=== PATIENT | male | born 1960 | race Caucasian/White ===

== ENCOUNTER 2023-01-22 11:30 | Outpatient (RCR) | payer OTHER, SELFPAY | END 2023-01-22 12:06 | disposition home or self-care (01) | PROVIDERS: PCP Surgery; Visit Provider Family Medicine | DX: M54.16 Radiculopathy, lumbar region (principal); Z51.89 Encounter for other specified aftercare | CPT/HCPCS: 97110; 97140; 97162 ==

== ENCOUNTER 2023-03-05 06:01 | Day surgery (SDC) | payer OTHER, SELFPAY ==
[2023-03-05] MEDS: LACTATED RINGERS 1000 ML 1,000 ML 100 ML IV (05:50)
[2023-03-05 06:18] VITALS: BP 150/92; PULSE 95; RESP 16; TEMP 36.6; O2SAT 95; BMI 27.1
[2023-03-05] MEDS: SODIUM CHLORIDE 0.9 % (FLUSH) 10 ML SYRINGE IVF (06:28)
--- NOTE | 2023-03-05 06:48 | W.ANESCHARGE ---
Anesthesia Charges Start Date/Time Anesthesia Start Date: 03/05/23 Anesthesia Start Time: 07:13 Stop Date/Time Anesthesia Stop Date: 03/05/23 Anesthesia Stop Time: 08:39
--- NOTE | 2023-03-05 07:15 | CRLHL7_ITS ---
For Patients: As a result of the Cures Act, medical imaging exams and procedure reports are released immediately into your electronic medical record. You may view this report before your referring provider. If you have questions, please contact your health care provider. Indication: Right bunionectomy Technique: Two fluoroscopic images of the right forefoot. Fluoroscopic time 14 seconds. IMPRESSION: Fluoroscopic guidance for right bunionectomy/1st metatarsal osteotomy. Dictated by Teto Toro MD @ 03/05/2023 9:27:17 AM (Electronically Signed)
[2023-03-05] MEDS: BUPIVACAINE 0.5% 30 ML INJECTION (07:20)
--- NOTE | 2023-03-05 07:40 | W.ANESCHARGE ---
Anesthesia Charges Start Date/Time Anesthesia Start Date: 03/05/23 Anesthesia Start Time: 07:13 Stop Date/Time Anesthesia Stop Date: 03/05/23 Anesthesia Stop Time: 08:39
[2023-03-05 08:35] VITALS: BP 105/77; PULSE 74; RESP 16; TEMP 36.2; O2SAT 96
--- NOTE | 2023-03-05 08:40 | W.ANESCHARGE ---
Anesthesia Charges Start Date/Time Anesthesia Start Date: 03/05/23 Anesthesia Start Time: 07:13 Stop Date/Time Anesthesia Stop Date: 03/05/23 Anesthesia Stop Time: 08:39
--- NOTE | 2023-03-05 08:43 | PM.PROC ---
Procedure Note Date Seen: 03/05/23 Date of procedure: 03/05/23 Will [facility] bill your pro fee for this procedure?: No Procedure Description: Preoperative diagnosis: Hallux valgus with bunion right Postoperative diagnosis: Hallux valgus with bunion right Procedure: Bunionectomy by distal metatarsal osteotomy right Anesthesia: Mac with local Hemostasis: Ankle tourniquet 250 mm Hg Estimated blood loss: Less than 10 mL Materials: [place] 3.0 cannulated Fixos screws x2 Complications: None apparent Indication for surgery: Patient seen in clinic for ongoing bunion pain. His lactate for surgical reconstruction. I reviewed the procedure, recovery, expectations and potential complications. These include but not limited to: Poor wound healing, infection, under correction, over correction, painful hardware, nerve injury, nonunion, delayed union, malunion, need for future surgery, deep venous thrombosis, pulmonary embolism possible . Site marked. All questions answered. Written consent obtained. Procedure: Patient brought up room placed supine position on the operating table. IV sedation was initiated local anesthetic injected into the right foot. He was prepped and draped in a sterile fashion. Standard time-out protocol was followed. Right foot was exsanguinated the tourniquet inflated. The right great toenail was significantly loose and was easily removed with a hemostat. Dorsomedial curvilinear incision is made over the 1st metatarsophalangeal joint. Incision was carried down through skin subcutaneous tissue. The tissue capsular incision was then created. Blunt dissection was carried down in the 1st intermetatarsal space a standard lateral release was performed. The plantar lateral joint capsule was released as well as the dorsal fibular sesamoidal ligaments and the adductor tendon. An osteotomy guide pin was placed in the 1st metatarsal head and checked under C-arm. A modified Katiuska Green osteotomy was then performed. The guidepin was removed the capital fragment was transposed laterally. Once optimal correction was obtained the osteotomy was fixated with two 3.0 cannulated screws. First metatarsal head and distal shaft were remodeled with a sagittal saw and rotary bur. Wound was thoroughly irrigated with normal sterile saline. Final C-arm images confirmed excellent correction of the bunion deformity with appropriately placed hardware. Redundant capsular tissue was excised and the capsule was repaired with 3-0 Vicryl. Subcutaneous tissues reapproximated 4-0 Monocryl and skin closed with 4-0 Prolene. Sterile dressing was applied and the tourniquet released. Normal capillary fill time returned all digits. 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 He was discharged per Anesthesia. He was given both written and verbal postop instructions. He was given oxycodone for pain. He is weight-bearing as tolerated with crutches for assistance. Anesthesia: MAC and local Surgeon: Reagan Fernandez DPM Estimated blood loss (mL): 5 Condition: stable Disposition: same day
[2023-03-05 08:45] VITALS: BP 119/79; PULSE 74; RESP 16; O2SAT 96
[2023-03-05 09:00] VITALS: BP 120/80; PULSE 75; RESP 16; O2SAT 96
[2023-03-05 09:15] VITALS: BP 121/79; PULSE 72; RESP 16; O2SAT 96
[2023-03-05 09:37] VITALS: BP 122/79; PULSE 70; RESP 16; O2SAT 96
== END 2023-03-05 09:47 | disposition home or self-care (01) ==
PROVIDERS: PCP Surgery; Visit Provider Podiatrist
PROC: (CPT 28292; principal; 2023-03-05 07:15)
DX: M20.11 Hallux valgus (acquired), right foot (principal); M21.611 Bunion of right foot
CPT/HCPCS: 28296; 01480; 73620; 76000; 97116; 97161; C1713; J2250; J2704; J3010; J3490; J7120

== ENCOUNTER 2023-10-22 09:12 | Day surgery (SDC) | payer OTHER, MEDICARE, SELFPAY ==
[2023-10-22] VITALS (7 sets, daily range): BP systolic 107–146; BP diastolic 66–99; PULSE 71–110; RESP 14–16; TEMP 36.3–36.7; O2SAT 91–96; BMI 27.6
[2023-10-22] MEDS: LACTATED RINGERS 1000 ML 1,000 ML 100 ML IV (09:53)
--- NOTE | 2023-10-22 10:30 | CRLHL7_ITS ---
For Patients: As a result of the Century Cures Act, medical imaging exams and procedure reports are released immediately into your electronic medical record. You may view this report before your referring provider. If you have questions, please contact your health care provider. HISTORY: Bunionectomy. TECHNIQUE: Fluoroscopy was provided intraoperatively for the podiatry service. Two spot films acquired. FINDINGS: Spot films demonstrate plate and screw fusion of the 1st TMT articulation. There are findings of bunionectomy. A staple is present within the proximal phalanx of the great toe in the setting of osteotomy. Dictated by Rick Herrera MD @ 10/23/2023 6:32:19 AM (Electronically Signed)
[2023-10-22] MEDS: CEFAZOLIN 2 GM INJ IVP (11:00)
[2023-10-22] MEDS: BUPIVACAINE 0.5% 30 ML INJECTION ×2 (11:08→11:14)
--- NOTE | 2023-10-22 13:40 | P.PCN_ITS ---
Procedure Note Date Seen: 10/22/23 Date of procedure: 10/22/23 Will [facility] bill your pro fee for this procedure?: No Pre-op diagnosis: Hallux valgus with bunion left Post-op diagnosis: same Procedure: 1. Lapidus bunionectomy left 2. Phalangeal osteotomy left Procedure Description: Hemostasis: Ankle tourniquet 250 mm Hg Materials: Mary Lapifuse plate x1, 3.0 mm locking screw times 4, 4.0 mm cannulated screw x1, 10 mm staple x1. Complications: None apparent Indication for surgery: Patient seen for ongoing bunion pain. He elected to have surgical correction. I reviewed the procedure, recovery, expectations potential complications. These include but not limited to pulse: Poor wound healing, infection, under correction, over correction, nonunion, delayed union, potential need for future surgery, stiffness, deep venous thrombosis, pulmonary embolism and possible . He understands risks and written consent was obtained. Site marked. All questions answered. Procedure in detail: Patient brought in the operating room placed supine position on the operating table. IV sedation was initiated local anesthetic injected into the left foot. He was prepped and draped in sterile fashion. Standard time-out protocol followed. Left foot was exsanguinated the tourniquet inflated. Dorsomedial curvilinear incision made over the 1st metatarsophalange al joint extended the dorsal medial 1st metatarsal cuneiform joint. The incision was carried down through skin subcutaneous tissues. T-shaped capsular incision was made in the capsular tissues reflected away from the head of the 1st metatarsal. Standard lateral lease was then performed with the plantar medial capsule, dorsal fibular sesamoidal ligaments and adductor tendon released. Blunt dissection at the level of metatarsal cuneiform joint performed and the extensor tendon reflected laterally. The joint was incised and capsular tissue reflected. A joint distractor applied and the joint distracted. The cartilage and subchondral bone was removed using an osteotome and curette. A small stab incision made over the 2nd metatarsal neck and blunt dissection carried down to the bone. Wounds were thoroughly irrigated no sterile saline. The lapifuse jig was applied and the 1st metatarsal was reduced in all 3 planes. Once in the optimal position that fusion site was evaluated and further remodeling was needed. Joint was distracted again and additional bone from the lateral aspect of the medial cuneiform and 1st metatarsal base was removed. This was fenestrated with a sagittal saw. Alignment was improved. The fusion sides were then fenestrated with a drill and fish-scaled with an osteotome. The fusion site was reduced into the appropriate alignment and a guide pin was giselle sophia from plantar medial distal to proximal lateral dorsal across the fusion site into the middle cuneiform. C-arm confirmed position. 4.0 cannulated screw inserted with excellent compression through the fusion site. Dorsal medial 5 hole plate was then applied with 2 locking screws distal and 2 locking screws proximal. C-arm confirmed position. The jig was removed. First metatarsal head was remodeled with a rotary bur. Great toe still wanted to drift laterally despite soft tissue release. Linear incisions made over the medial proximal phalanx. Blunt dissection down to the periosteum. Dorsally the extensor tendon was retracted and protected. He medially based pie-shaped wedge osteotomy was performed preserving the lateral cortex. The wedge was removed and we carefully close down the medial aspect of the osteotomy and placed a 10 mm staple. C-arm confirmed excellent position. This corrected the drift. We thoroughly irrigated normal sterile saline. Redundant capsular tissue was excised and the joint capsule repaired with 3-0 Vicryl. Subcutaneous tissues reapproximated 4-0 Monocryl and skin closed with 4-0 Prolene. Sterile dressing was applied and the tourniquet releas ed. Normal capillary fill time returned all digits. Well-padded cam boot placed. He was transferred from OR to PACU vital signs stable and vascular status intact to the left lower extremity. He was discharged per Anesthesia. Both written and verbal postop instructions given. Is weight-bearing as tolerated to the heel in a Cam boot with crutches. Follow up in clinic in 3 days. He is given oxycodone for pain. Start aspirin therapy tomorrow. Anesthesia: MAC and local Surgeon: Reagan Fernandez DPM FACFAS Estimated blood loss (mL): 20 Condition: stable Disposition: same day
--- NOTE | 2023-10-22 13:42 | W.ANESCHARGE ---
Anesthesia Charges Start Date/Time Anesthesia Start Date: 10/22/23 Anesthesia Start Time: 10:56 Stop Date/Time Anesthesia Stop Date: 10/22/23 Anesthesia Stop Time: 13:39
--- NOTE | 2023-10-22 15:24 | SUR.PHASEII ---
Pt tolerated ice water, toast. Pt voided. Pt verbalized readiness to be discharged and pt and family member verbalized understanding of discharge instructions.
== END 2023-10-22 15:20 | disposition home or self-care (01) ==
PROVIDERS: PCP Surgery; Visit Provider Podiatrist
PROC: (CPT 28292; principal; 2023-10-22 10:30)
DX: M20.12 Hallux valgus (acquired), left foot (principal); M21.612 Bunion of left foot
CPT/HCPCS: 28297; 01480; 73620; 76000; C1713; J0665; J0690; J1100; J1885; J2250; J2405; J2704; J3010; J7120